=== PATIENT | female | born 1930 | race Caucasian/White ===

== ENCOUNTER → 2016-07-26 | Outpatient (CLI) | payer MEDICARE ==
[~2016-07-26] MED LIST: ATEN100T PO; CALC-768 PO; DOCU100C PO; FENO54TA6 PO; IOHEXOL 180 MG/ML 20ml INJECTION ONE; LEVO75TA10 PO; LIDOCAINE 1% (10mg/ml) 5ml VIAL ONE; MULT-669 PO; MethylPREDNISolone ACETATE 40mg/1ml ONE; OMEG-34 PO; ROSU10TA PO; SITA100T12 PO; TRAM50TA4 PO; [UNRECOGNIZED DRUG - CODE] PO
--- NOTE | 2016-07-26 10:12 | DI ---
Indication:ITS.REASON: M54.5 LOW BACK PAIN Procedure:EPIDURAL INJ.SPINE W FLUO CATH LUMBAR EPIDURAL INJECTION: The patient has low back and radicular pain. The patient states that she received a lumbar epidural injection at this facility approximately three weeks ago, however, I am unable to find any evidence of this. The details of the procedure, including the benefits, risks, and alternatives were explained to the patient. All of their questions were answered. They stated that they understood and wished to proceed. Informed consent was then obtained. A pre-procedural timeout was performed to confirm the correct patient and procedure. Utilizing aseptic technique, local lidocaine anesthetic, and fluoroscopic guidance throughout, a 22-gauge spinal needle was directed into the lumbar epidural space via an interlaminar approach at the L4-5 level. Contrast was injected to assure proper positioning of the needle tip. A fluoroscopic image was then taken and archived. Subsequently, 120 mg Depo-Medrol was injected into the epidural space. The patient tolerated the procedure well. IMPRESSION: Successful lumbar epidural steroid injection. Fluoroscopy dose: 36.89 mGy (Cumulative air kerma) Jeff Hyman RPA/CHRISTI performed this under my personal supervision. .
== END ==
LOC: IMA 08:26
PROVIDERS: ATTEND Family Medicine
DX: M54.5 Low back pain (principal)
CPT/HCPCS: 62323; J1030; Q9965